=== PATIENT | female | born 1975 | race Native Hawaiian/Other Pacific Islander ===

== ENCOUNTER 2017-04-05 12:22 | Emergency (ER) | payer OTHER ==
[~2017-04-05] VITALS: Ht 162.6 cm; Wt 62.6 kg
[2017-04-05 12:25] VITALS: BP 128/76; TEMP 98
== END 2017-04-05 12:40 | disposition home or self-care (01) ==
LOC: ED 12:22
DX: R06.02 Shortness of breath (principal); R53.1 Weakness
CPT/HCPCS: 99281